=== PATIENT | male | born 1970 ===

== ENCOUNTER 2021-06-21 22:53 | Emergency (ER) | payer OTHER ==
[~2021-06-21] VITALS: Ht 177.8 cm; Wt 93.0 kg
== END 2021-06-22 00:02 | disposition home or self-care (01) ==
LOC: ER 22:53
DX: S51.851A Open bite of right forearm, initial encounter (principal); W54.0XXA Bitten by dog, initial encounter; Y93.K1 Activity, walking an animal; Y92.89 Other specified places as the place of occurrence of the external cause; Y99.9 Unspecified external cause status

== ENCOUNTER → 2022-09-11 | Outpatient (CLI) | payer OTHER | END | disposition home or self-care (01) | LOC: MRI 06:28 | DX: R41.3 Other amnesia (principal) | CPT/HCPCS: 70551 ==